=== PATIENT | female | born 1965 | race Caucasian/White ===

== ENCOUNTER → 2017-04-25 | Outpatient (CLI) | payer BC, OTHER ==
[~2017-04-25] MED LIST: ANASPAZ0.125 MG PO; BENTYL10 MG PO; CIPRO500 MG PO; CLOBETASOL PROP50 ML; COLACE100 MG PO; DICLOFENAC SOD; FLAGYL500 MG PO; HYDROCHLOROTH12.5 M3 PO; HYDROCHLOROTHIA25 MG PO; HYDROCORTISONE25 MG; IBUPROFEN800 MG PO; LINZESS290 MCG; LINZESS290 MCG PO; NEXIUM40 MG PO; NORCO 5/3251 TABLET PO; PERCOCET 5/31 TABLET PO; PRAVASTATIN SOD20 MG; VENTOLIN HFA18 GM; VENTOLIN HFA18 GM IH; WELLBUTRIN XL300 MG PO; ZANTAC150 MG PO; ZOFRAN4 MG PO; ZYRTEC10 M2 PO
== END | disposition home or self-care (01) ==
LOC: CDC 10:12
DX: Z01.810 Encounter for preprocedural cardiovascular examination (principal)
CPT/HCPCS: 93000

== ENCOUNTER 2017-05-04 08:09 | Day surgery (SDC) | payer BC, OTHER ==
[~2017-05-04] VITALS: Ht 162.6 cm; Wt 97.5 kg
[~2017-05-04 08:09] MED LIST changes: +CYMBALTA60 MG PO; +MUCINEX DM ER1 EACH PO
[2017-05-04 08:54] LABS: HEMATOCRIT 42.3 % (36.0-46.0); HEMOGLOBIN 13.8 G/DL (11.9-15.5); MCH 28.7 PG (29.0-34.0); MCHC 32.6 G/DL (30.0-36.0); MCV 87.9 FL (83-99); PLATELET COUNT 290 K/uL (156-360); RBC DIS.WIDTH-CV 14.1 % (11.8-14.6); RBC DIS.WIDTH-SD 45.7 % (39-53); RED BLOOD COUNT 4.81 M/uL (3.80-5.20)
[2017-05-04 08:56] VITALS: BP 128/77
[2017-05-04 12:20] VITALS: BP 146/78
[2017-05-04 12:58] VITALS: BP 130/82
== END 2017-05-04 13:01 | disposition home or self-care (01) ==
LOC: SDC 08:09
PROVIDERS: Obstetrics & Gynecology
DX: N92.0 Excessive and frequent menstruation with regular cycle (principal); I10 Essential (primary) hypertension; J45.909 Unspecified asthma, uncomplicated; K21.9 Gastro-esophageal reflux disease without esophagitis; Z87.891 Personal history of nicotine dependence
CPT/HCPCS: 84702; 85027; 88305; J0690; J1100; J1170; J2250; J2405